=== PATIENT | female | born 1970 | race Two or more races ===

== ENCOUNTER 2017-12-21 00:23 | Day surgery (SDC) | payer OTHER ==
[~2017-12-21] VITALS: Ht 170.2 cm; Wt 61.7 kg
[2017-12-21] VITALS (8 sets, daily range): BP systolic 84–110; BP diastolic 56–81
[~2017-12-21 00:23] MED LIST: CYAN25004; VITA200C8 PO
[2017-12-21] MEDS ORDERED: NORMOSOL R SOLN(*) 1000 ML BAG 1,000 ML IV PRN (07:40)
[2017-12-21] MEDS ORDERED: LIDOCAINE/SOD BICARB 8.4% SYR ID ONE (07:40)
[2017-12-21] MEDS ORDERED: MIDAZOLAM 2 MG/2 ML VIAL IVP PRN (07:40)
[2017-12-21] MEDS ORDERED: PROPOFOL EMUL(*) 10MG/ML 20 ML 40 ML ONE (07:52)
[2017-12-21] MEDS ORDERED: PROPOFOL EMUL(*) 10MG/ML 20 ML 20 ML ONE (09:33)
--- NOTE | 2017-12-21 09:55 | Short(Outpt) Discharge Summary ---
Discharge Summary Reason for Hosp/Final Diag: (1) Chronic GERD Status: Chronic Hospital Course & Plan: EGD with biopsies and esophageal dilation completed without problems. (2) History of gastric polyp Status: Chronic (3) History of gastric ulcer Status: Chronic (4) Dysphagia Status: Chronic Departure Discharge to: Home, Self Care Discharge Instructions Home Meds Reported Medications Cyanocobalamin (Vitamin B-12) (Vitamin B12) 2,500 Mcg Tablet 12/13/17 Follow up Referrals: General Surgery - 01/04/18 @ Surgery, General with Michelle Flores Md You have a follow up appointment scheduled with Dr. Flores on 01/04/18, at 1: 00pm. Diet: Regular Activity: As Tolerated Problem Qualifiers (1) Dysphagia: Dysphagia type: unspecified Qualified Codes: R13.10 - Dysphagia, unspecified MICHELLE FLORES MD Dec 21, 2017 09:55
[2017-12-21] MEDS ORDERED: GI COCKTAIL 60 ML BTL PO ONE ×2 (10:30→10:45)
== END 2017-12-21 11:25 | disposition home or self-care (01) ==
LOC: OR 00:23
PROVIDERS: ATTEND Surgery
DX: K31.7 Polyp of stomach and duodenum (principal)
CPT/HCPCS: 43239; 43248; 43251; 87077; 88305; 88313; 88344; C1769; J2704

== ENCOUNTER → 2017-12-29 | Outpatient (CLI) | payer OTHER ==
[~2017-12-29] MED LIST changes: +BARIUM SULFATE 176 GM BTL PO ONE; +BARIUM SULFATE 340 GM POWD ONE
--- NOTE | 2017-12-29 16:01 | RADIOLOGY IMAGING REPORT ---
FACILITY: [facility] PATIENT NAME: Macy Bob : 1970 MR: [id number] V: [id number] EXAM DATE: ORDERING PHYSICIAN: MICHELLE FLORES TECHNOLOGIST: Location: [facility] Patient: Macy Bob : 1970 Visit/Account:[id number] Date of Sevice: 12/29/2017 Exam type: ESOPHAGRAM History: Esophageal dilatation one week ago. Dysphasia with feeling of food sticking in throat Comparison: None. Findings: Double contrast esophagram was performed with thick and thin barium there is very subtle mucosal irre gularity seen along the anterior aspect of the upper cervical esophagus may simply be related to toi a from the recent esophageal dilatation. No significant narrowing no extraluminal extravasation of c ontrast identified within the esophagus. There was no demonstration of a hiatal hernia. Mild gastro esophageal reflux was observed the fluoroscopy dose area product was 149.46 micro-Colindres per meter squa red IMPRESSION: 1. There is very subtle mucosal irregularity seen along the anterior aspect the upper cervical esoph raina. This may simply be related to edema from the recent esophageal dilatation. There is no eviden ce of significant esophageal narrowing or extraluminal extravasation of contrast. Mild gastroesophag eal reflux was observed. Report Dictated By: Marta Mcgovern MD at 12/29/2017 3:52 PM Report E-Signed By: Marta Mcgovern MD at 12/29/2017 3:57 PM WSN:[email or web address]
== END ==
LOC: RAD 01:04
PROVIDERS: ATTEND Surgery
DX: K21.9 Gastro-esophageal reflux disease without esophagitis (principal)
CPT/HCPCS: 74220

== ENCOUNTER → 2018-06-01 | Outpatient (CLI) | payer OTHER ==
[~2018-06-01] MED LIST changes: -BARIUM SULFATE 176 GM BTL PO ONE; -BARIUM SULFATE 340 GM POWD ONE
--- NOTE | 2018-06-02 15:49 | RADIOLOGY IMAGING REPORT ---
FACILITY: [facility] [place] PATIENT NAME: DEBORAH TEJADA : [id number] MR: [id number] V: [id number] EXAM DATE: [id number] ORDERING PHYSICIAN: NATHAN DUNCAN TECHNOLOGIST: Ella Krishnamurthy PROCEDURE:BILATERAL DIAGNOSTIC DIGITAL MAMMOGRAM WITH CAD ASSISTED INTERPRETATION & 3D TOMOSYNTHESIS COMPARISON:Prior mammograms dated 05/13/17, 11/11/16, 08/08/15, 03/11/15, 09/04/14 INDICATIONS:MASTODYNIA/BREAST PAIN UPPER OUTER QUADRANT OF THE RIGHT BREAST. FINDINGS: Moderately heterogeneous fibroglandular tissue is seen throughout the breasts. The parenchymal pattern has remained stable allowing for difference in mammographic technique & patient positioning. There is no evidence of malignant appearing mass, malignant appearing calcification or other secondary sign of malignancy in either breast. DIAGNOSTIC CATEGORY 1--NEGATIVE. RECOMMENDATIONS: ROUTINE MAMMOGRAM AND CLINICAL EVALUATION. CLINICAL EVALUATION. IMPRESSION: BIRADS 1: Negative. No significant abnormality is seen. Clinical follow up recommended for patient's Right breast pain. Dictated by: Marta Mcgovern M.D. on 06/01/2018 at 16:58 Transcribed by: HOMA on 06/02/2018 at 9:23 Approved by: Marta Mcgovern M.D. on 06/02/2018 at 15:47 [facility]
== END ==
LOC: MAMO 07:04
PROVIDERS: ATTEND Physician Assistant
DX: N64.4 Mastodynia (principal)
CPT/HCPCS: 77062; 77066

== ENCOUNTER 2019-02-16 00:14 | Observation (INO) | payer OTHER ==
[2019-02-16] VITALS (12 sets, daily range): BP systolic 97–118; BP diastolic 56–72
[~2019-02-16] VITALS: Ht 170.2 cm; Wt 63.5 kg
[~2019-02-16 00:14] MED LIST changes: +AMOXICILLIN 875MG PO; +SCOP1PAT16 TD; +VITA-200 PO
[2019-02-16] MEDS ORDERED: KETAMINE HCL-NS 50 MG/5 ML SYR ONE (08:45)
[2019-02-16] MEDS ORDERED: fentaNYL CITR 100 MCG/2 ML AMP ONE ×2 (08:45→16:12)
[2019-02-16] MEDS ORDERED: DEXAMETHASONE SOD PHOS 10MG/ML ONE (08:46)
[2019-02-16] MEDS ORDERED: PROPOFOL EMUL(*) 10MG/ML 20 ML 20 ML ONE (08:46)
[2019-02-16] MEDS ORDERED: ONDANSETRON 4 MG/2 ML VIAL ONE (08:46)
[2019-02-16] MEDS ORDERED: LIDOCAINE MPF 1% 5 ML VIAL ONE (08:46)
[2019-02-16] MEDS ORDERED: ROCURONIUM BROM 10 MG/ML 10 ML ONE (08:48)
[2019-02-16] MEDS ORDERED: SCOPOLAMINE 1.5 MG PATCH TD ONE (10:20)
[2019-02-16] MEDS ORDERED: NORMOSOL R SOLN(*) 1000 ML BAG 1,000 ML IV PRN (11:00)
[2019-02-16] MEDS ORDERED: MIDAZOLAM 2 MG/2 ML VIAL IVP PRN (11:00)
[2019-02-16] MEDS ORDERED: cefOXitin/DEX(*) 2GM/50ML PREM 50 ML IVPB ONE (11:00)
[2019-02-16] MEDS ORDERED: LIDOCAINE/SOD BICARB 8.4% SYR ID ONE (11:00)
[2019-02-16] MEDS ORDERED: FAMOTIDINE 20 MG TAB PO ONE (11:00)
[2019-02-16] MEDS: APREPITANT 40 MG CAP PO ONE ×2 (12:15→12:20)
[2019-02-16] MEDS ORDERED: APREPITANT 40 MG CAP PO ONE (12:17)
[2019-02-16] MEDS ORDERED: MANNITOL* (20%)100 GM/500ML BG 500 ML IVPB ONE (12:24)
[2019-02-16] MEDS ORDERED: ROPIVACAINE 0.2% 20 ML VIAL ONE (12:25)
--- NOTE | 2019-02-16 12:46 | NUR ---
Hx of Preop assessment: pt stated only when angry does she feel chest pain or SOB, Pt stated that she has been nervous about this procedure - her evidence stated by "putting this off for a year". 1215 Given Emend for Post op N & V ordered by Dr. Vasquez 1219 Cefoxitin scanned and running Approximately 1225 Started to push versed in proximal port to IV site given 0.5mg then pt expressed having chest pain. IV site was red-localized at insert site, no complaint of burning or pain at IV site or arm. Pt described chest pain as radiating from front of left pectoral muscle to shoulder, had difficulty describing character of pain. VS at 1230 showed 130/76 BP, 79 Pulse, 96% on RA Christina was notified and order a 12 lead EKG VS at 1245: 114/61 BP, 76 Pulse, O2 97%, pt felt warm to the touch-Temp 99.9F - Christina notified of temp and IV site description (unchanged from first assessment) which at this time still did not cause discomfort to pt. Christina reviewed EKG results and cleared pt to continue to proceed with Op. Pt states that she is nervous and now has a c/o lower arm and IV site discomfort- pain, character undescribed. 1246 proceeded with Versed (1.5 mg) and sent to surgery.
--- NOTE | 2019-02-16 12:48 | EKG ---
FACILITY: [facility] PATIENT NAME: DEBORAH TEJADA : [id number] MR: [id number] V: [id number] EXAM DATE: ORDERING PHYSICIAN: CHEMA DE LEÓN TECHNOLOGIST: KALEB Test Reason : CP Blood Pressure : / mmHG Vent. Rate : 075 BPM Atrial Rate : 075 BPM P-R Int : 140 ms QRS Dur : 068 ms QT Int : 360 ms P-R-T Axes : 072 015 037 degrees QTc Int : 402 ms Normal sinus rhythm with sinus arrhythmia Low voltage QRS Borderline ECG No previous ECGs available Confirmed by Lemuel Miller ([id number]) on 02/16/2019 10:02:30 PM Referred By: GENET Confirmed By:Lemuel Hill
[2019-02-16] MEDS ORDERED: ePHEDrine 25 MG/5 ML DISP.SYR IVP ONE (13:01)
[2019-02-16] MEDS ORDERED: ZOLPIDEM TARTRATE 10 MG TAB PO PRN (15:45)
[2019-02-16] MEDS ORDERED: HYDROmorphone HCL 2 MG TAB PO PRN (15:45)
[2019-02-16] MEDS ORDERED: PROMETHAZINE 25 MG/ML 1 ML AMP IVP PRN (15:45)
--- NOTE | 2019-02-16 15:50 | Post Operative Note ---
Operative Note - CRYSTAL[facility]ER Operative Day Date: February 16, 2019 Time: 15:48 Physicians Surgeon: Fabiola Production Operations Inspector: Rosalind Sutton Anesthesia: GETA Diagnosis Pre-Op Diagnosis: Dysmenorrhea Dyspareunia Metrorrhagia Pelvic pain Post-Op Diagnosis: same endometriosis Procedure Findings: endometriosis and adhesions Procedure(s): RATLH BSO Adhesiolysis Cystoscopy Specimen Removed:(Maybe N/A): uterus, tubes, ovaries Complications: [id number] Fluids Fluids: 1700 ml Estimated Blood Loss: 100 ml Dictated Date OP Note Dictated: February 16, 2019 Time OP Note Dictated: 15:50 Copies to: TANYA BRADLEY MD ; TANYA BRADLEY MD February 16, 2019 15:50
[2019-02-16] MEDS ORDERED: IBUP800T37 PO (15:58)
[2019-02-16] MEDS ORDERED: DOCU-416 PO (15:58)
[2019-02-16] MEDS ORDERED: OXYC5TAB38 PO (15:58)
[2019-02-16] MEDS ORDERED: ESTRADIOL 0.1 MG/24 HR TDSY TD SCH (16:00)
[2019-02-16] MEDS ORDERED: ESTR1PAT99 TD (16:03)
[2019-02-16] MEDS ORDERED: SUGAMMADEX SOD 200 MG/2 ML SDV ONE (16:11)
[2019-02-16] MEDS: KETOROLAC 30 MG/ML VIAL IVP SCH ×2 (16:40→21:32)
[2019-02-16] MEDS: fentaNYL CITR 100 MCG/2 ML AMP ONE (17:00)
[2019-02-16] MEDS: oxyCODONE HCL 5 MG CAP PO PRN ×2 (17:48→23:13)
[2019-02-16] MEDS: DLR(*) 1000 ML BAG 1,000 ML IV PRN ×2 (17:48→23:13)
[2019-02-16] MEDS: ONDANSETRON 4 MG/2 ML VIAL IV PRN ×2 (18:21→23:13)
--- NOTE | 2019-02-16 19:01 | OPERATIVE REPORT 1 ---
EVENT DATE: February 16, 2019 SURGEON: Kelvin Hicks MD ANESTHESIOLOGIST: Aaron Vasquez MD ANESTHESIA: General endotracheal. ENDOCRINOLOGY TEACHER: Rosalind Sutton PA-C PREOPERATIVE DIAGNOSES 1. Pelvic pain. 2. Dysmenorrhea. 3. Excessive and frequent menstruation. 4. Dyspareunia. POSTOPERATIVE DIAGNOSES 1. Pelvic pain. 2. Dysmenorrhea. 3. Excessive and frequent menstruation. 4. Dyspareunia. 5. Pelvic peritoneal endometriosis. 6. Left ovarian endometrioma. 7. Pelvic and visceral adhesions. PROCEDURES PERFORMED 1. Robotic-assisted total laparoscopic hysterectomy. 2. Bilateral salpingo-oophorectomy. 3. Extensive pelvic adhesiolysis involving the descending colon to the posterior uterus and left adnexa requiring an additional 45 minutes of operative time. 4. Diagnostic cystoscopy. ESTIMATED BLOOD LOSS 100 mL. FLUIDS Crystalloid 1700 mL IV. URINE OUTPUT Not measured. FINDINGS Inspecting the pelvis, the left adnexa appeared to be adhered to the left uterus and pelvic sidewalls as well as the descending colon. Upon further inspection, the descending colon was adhered to the posterior uterus and left uterosacral ligament. The anatomy was significantly distorted in this location, requiring additional time and expertise to dissect the left adnexa away from the uterus, restore the anatomy, dissect retroperitoneal, and identify the location of the ureter and its travel. This was an additional 45 minutes of operative time required. There was vesicular endometriosis on the posterior uterus and other evidence of endometriosis within the posterior cul-de-sac. Normal-appearing right upper quadrant and normal abdominal contents. PROCEDURE IN DETAIL The patient was brought to the operating room with a working IV, placed in the dorsal supine position. She was placed under general endotracheal anesthesia by Dr. Vasquez and prepped and draped in the usual sterile fashion. A weighted speculum was placed in the vagina, and the cervix was visualized. It was multiparous and hypertrophied, requiring an extra large VCare uterine manipulator. It was sounded to a depth of 9 cm anteverted. The cervix was carefully dilated in order to accommodate the extra large VCare, which was passed through the cervix into the uterus, balloon inflated and secured, and the VCare cup was sutured to the cervix. The pneumo cup was approximated against the VCare cup and secured. Monae catheter was placed in the bladder to dependent drainage. The legs were brought back to the supine position, and gloves were changes. We proceeded laparoscopically by infiltrating approximately 2 cm above the umbilicus and performing an 8 mm transverse incision in this location. A Veress needle was passed through this incision into the abdomen while stabilizing and elevating the anterior abdominal wall. A pneumoperitoneum was created to an intra-abdominal pressure of 20 mmHg. Veress needle was removed, and an 8 mm bladeless trocar was passed through this incision into the abdomen under direct visualization with the scope. Additional 8 mm ports were placed as follows: Two left lateral and two right lateral to the same location and all placed under direct visualization with the scope. The abdomen and pelvis were surveyed with the above findings noted. The patient was moved to the Trendelenburg position, and bowel was swept away. The robot was brought overlying the patient and docked. All instruments were connected to the robot and passed into the abdomen under direct visualization. The vessel sealer was on arm 1, camera on 2, monopolar scissors on 3, and ProGrasp on 4. I then scrubbed out and presented to the console for the hysterectomy, which proceeded as follows: Approximately 45 minutes of operative time was required to carefully dissect the posterior uterus away from the descending colon and left adnexa. Careful dissection through surgical planes and cauterization were employed to effectively dissect this location. Once the anatomy had been significantly restored, I had also dissected retroperitoneal, and due to the thickness of the adhesions and endometriosis in that location and inflammation, I was not able to see the ureter through the peritoneum. Therefore, I dissected retroperitoneal in order to identify the ureter near the internal iliac vein. Once it had been identified and I traced its course, it was found to be well above the operative area in order to perform an oophorectomy. Therefore, the IP ligament was cauterized and transected with the vessel sealer, and careful dissection up to the round ligament was performed until I had made it through that ligament and into the broad ligament. The broad ligament was then in anterior and posterior leaflets, and the anterior dissection was performed. The VCare cup was palpable below, and a colpotomy was performed overlying in order to colton its location. Further dissection posteriorly skeletonized the uterine vessels, which were then cauterized in a perpendicular fashion along with parallel bites along the lateral uterus down to and overlying the VCare cup. Attention was then turned to the contralateral side. The right fallopian tube and ovary were grasped, elevated, and put on stretch while the IP ligament was cauterized in a transverse fashion and transected. Careful dissection down through the mesosalpinx to the round ligament which was cauterized and transected was performed. Round ligament was into anterior and posterior leaflets, and the anterior dissection was completed, followed by posterior skeletonization. The uterine vessels in this location were cauterized perpendicularly along with parallel bites along the lateral uterus down to and overlying the VCare cup. Upon completion, there was still some bleeding noted from the left adnexa. This was ultimately controlled with the vessel sealer. Circumferential incision around the cervix was then performed with the monopolar scissors down through the uterosacral ligaments posteriorly, traversing to the contralateral side, and completing the transverse incision. The uterus was excised and removed through the vagina. Vessel sealer was replaced with the bipolar grasper, which was then used to grasp a few bleeders near the vascular pedicle on the right side. Once this was adequately controlled, suction and irrigation were performed, and instruments were swapped for suturing. An 0 Vicryl was then used to suture ligate the angle of the vagina to the ipsilateral uterosacral ligament as well as to incorporate the remaining denuded vascular surfaces for hemostasis. A [id number]-kuzpi was performed in this location and then duplicated on the left side. This was hemostatic upon completion; therefore, the V-Loc suture was used to close the vagina in a running nonlocking stitch along its entire length. The pelvis was then copiously irrigated and suctioned dry. There were no visible bleeders at this point, and there were no visible complications. There were denuded surfaces surrounding the prior dissection, but otherwise no active bleeding. The procedure was then terminated, and the pneumoperitoneum was suctioned out. All instruments were removed from the abdomen. Skin incisions were repaired with 4-0 Monocryl simple subdermal and covered with Dermabond skin adhesive. Diagnostic cystoscopy was performed with 20% mannitol infusing. The entire bladder was inspected and found to be without injury. Both ureteral orifices were observed to have a strong uterine jet with no visible ureteral injuries. Therefore, the bladder was drained. The Monae catheter was replaced to dependent drainage. She was returned to the dorsal supine position, awakened from general anesthesia in stable condition, and taken to Recovery. Sponge, lap, needle, and instrument counts were all correct times three. MTDD
[2019-02-16] MEDS: DOCUSATE CALCIUM 240 MG CAP PO SCH (21:00)
[2019-02-16] MEDS: FAMOTIDINE 20 MG TAB PO SCH (21:32)
[2019-02-17 04:15] VITALS: BP 97/61
[2019-02-17] MEDS: KETOROLAC 30 MG/ML VIAL IVP SCH (04:15)
[2019-02-17] MEDS: SIMETHICONE 80 MG CHEW CHEW PRN ×2 (05:50→10:50)
[2019-02-17 06:13] LABS: PLATELET COUNT, AUTOMATED 189 K/uL (150-450)
[2019-02-17 07:40] VITALS: BP 93/56
[2019-02-17] MEDS: FAMOTIDINE 20 MG TAB PO SCH (09:26)
[2019-02-17] MEDS: DOCUSATE CALCIUM 240 MG CAP PO SCH (09:26)
[2019-02-17] MEDS ORDERED: IBUPROFEN 800 MG TAB PO PRN (10:00)
--- NOTE | 2019-02-17 10:30 | OB/GYN Progress Note ---
OB Subjective Progress Notes Subjective Feeling well. Pain manageable and ambulating well. Has been up to void once since catheter removed this morning. Minimal spotting. Is tolerating regular diet without nausea. Has not passed gas yet. GI: NEG Nausea : Voiding Well Pain: Mild OB Objective Physical Exam Vital Signs Date Time Temp Pulse Resp B/P (MAP) Pulse Ox O2 Delivery O2 Flow Rate FiO2 02/17/19 07:40 98.5 59 15 93/56 (68) 99 Nasal Cannula 0.5 Intake and Output 02/17/19 07:00 Intake Total 3990 ml Output Total 1524 ml Balance 2466 ml Intake Oral 240 ml IV Total 3750 ml Output Urine Total 1524 ml Cardiovascular: Normal Rhythm & Peripheral Pulses, Regular Rate and Rhythm Respiratory: No Respiratory Distress, Clear to Auscultation Abdomen: Soft, Non-Tender, Non-Distended, Bowel Sounds Present Incision: Clean, Dry, Intact, Dermabond Psychological: Alert & Oriented X3, Appropriate Mood & Affect Result Diagram: 02/17/19 0531 Assessment and Plan BABBITTER Plan: Routine Post-Op Care Problems: (1) Other specified aftercare following surgery Assessment & Plan: Continue to monitor today for pain control and bowel activity. If passing better gas today will discharge home later. Reviewed all discharge precautions. F/U at 2 weeks. (2) History of robot-assisted laparoscopic hysterectomy TANYA BRADLEY MD February 17, 2019 10:30
--- NOTE | 2019-02-17 10:30 | Short(Outpt) Discharge Summary ---
Discharge Summary Reason for Hosp/Final Diag: (1) Other specified aftercare following surgery Hospital Course & Plan: Continue to monitor today for pain control and bowel activity. If passing better gas today will discharge home later. Reviewed all discharge precautions. F/U at 2 weeks. (2) History of robot-assisted laparoscopic hysterectomy Departure Discharge to: Home, Self Care Discharge Instructions Home Meds Active Scripts Oxycodone Hcl (OXYCODONE HCL) 5 Mg Tablet, 5 MG PO Q6H PRN for PAIN, #20 TAB Prov:JALYN MAYNARD 02/16/19 Reported Medications Scopolamine (Scopolamine) 1 Mg/3 Day Patch.td.3, 1.5 MG TD ONCE 02/09/19 [Amoxicillin 875MG] No Conflict Check, 875 MG PO Q12H for THRUSH for 4 Days 02/09/19 Vitamin E Acetate (VITAMIN E) 400 Unit Capsule, 400 UNIT PO DAILY, CAPSULE 02/09/19 Cyanocobalamin (Vitamin B-12) (Vitamin B12) 2,500 Mcg Tablet 12/13/17 Follow up Referrals: 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
[2019-02-17 13:00] VITALS: BP 101/55
[2019-02-17] MEDS ORDERED: INFLUENZA VIRUS VAC 0.5ML SYR IM ONLY ONE (15:45)
== END 2019-02-17 14:06 | disposition home or self-care (01) ==
LOC: OR 00:14 → INTOOBSV 17:30 → PED 17:30
PROVIDERS: ADMIT Obstetrics & Gynecology; ATTEND Obstetrics & Gynecology
DX: N94.10 Unspecified dyspareunia (principal); N80.3 Endometriosis of pelvic peritoneum; N80.1 Endometriosis of ovary; N73.6 Female pelvic peritoneal adhesions (postinfective)
CPT/HCPCS: 36415; 58571; 58660; 84703; 85025; 88307; 93005; G0378; J0694; J1100; J1885; J2001; J2250; J2405; J2704; J2795; J3010; J3490; J8501; S2900